=== PATIENT | male | born 1965 | race Caucasian/White ===

== ENCOUNTER 2022-11-24 10:12 | Outpatient (CLI) | payer MEDICAID ==
[~2022-11-24] VITALS: Ht 167.6 cm; Wt 65.8 kg
[2022-11-24] MEDS ORDERED: albuterol 2.5 MG/3 ML nebule NEB PRN (10:55)
== END 2022-11-24 23:59 | disposition home or self-care (01) ==
LOC: RT 10:12
PROVIDERS: ATTEND Nurse Practitioner Primary Care
DX: R06.02 Shortness of breath (principal); Z87.891 Personal history of nicotine dependence
CPT/HCPCS: 94060; 94760

== ENCOUNTER 2023-11-18 12:10 | Emergency (ER) | payer MEDICAID ==
[~2023-11-18] VITALS: Ht 165.1 cm; Wt 64.0 kg
[2023-11-18 12:20] VITALS: BP 142/86; PULSE 86; TEMP 98.9; O2SAT 97
[2023-11-18 14:59] VITALS: RESP 16
[2023-11-18] MEDS ORDERED: HYDR-3965 PO (15:21)
[2023-11-18] MEDS ORDERED: IBUP-1986 (15:24)
[2023-11-18] MEDS ORDERED: FLUT1BLS13 INH (15:24)
[2023-11-18] MEDS ORDERED: AMLO-708 PO (15:24)
[2023-11-18] MEDS ORDERED: ALBUTEROL (15:24)
[2023-11-18] MEDS ORDERED: LISI40TA13 PO (15:24)
[2023-11-18] MEDS: ondansetron/PF 4mg/2ml inj IV ONE (15:43)
== END 2023-11-18 15:43 | disposition home or self-care (01) ==
LOC: ER 12:11
DX: K40.90 Unilateral inguinal hernia, without obstruction or gangrene, not specified as recurrent (principal); Z88.8 Allergy status to other drugs, medicaments and biological substances; Z79.899 Other long term (current) drug therapy; Z88.2 Allergy status to sulfonamides
CPT/HCPCS: 99282; 99283